=== PATIENT | male | born 1960 | race Hispanic/Latino ===

== ENCOUNTER 2019-01-12 05:24 | Day surgery (SDC) | payer MEDICAID ==
[~2019-01-12] VITALS: Ht 162.6 cm; Wt 67.1 kg
[~2019-01-12 05:24] MED LIST: ALPR0.5T PO; CETI10TA57 PO; ESOM40CA PO; FLUT16H NASAL; LACT10SO32 PO; LEVO50TA11 PO; PRAV20TA4 PO; PROP20TA7 PO; SPIR50TA PO
[2019-01-12] MEDS ORDERED: SODIUM CHLORIDE 0.9% 1000ML 1,000 ML IV ONE (05:45)
[2019-01-12 06:40] VITALS: BP 117/74
[2019-01-12] MEDS ORDERED: PROPOFOL 10 MG/ML 20ML VIAL IV ONE (08:08)
[2019-01-12 08:20] VITALS: BP 87/57
[2019-01-12 08:25] VITALS: BP 89/52
[2019-01-12 08:30] VITALS: BP 113/66
[2019-01-12 09:45] VITALS: BP 90/37
[2019-01-12 09:48] VITALS: BP 97/35
== END 2019-01-12 10:22 | disposition home or self-care (01) ==
LOC: ENDO 05:24 → DAH 05:24 → ENDO 10:22
PROVIDERS: ATTEND Internal Medicine
DX: K29.50 Unspecified chronic gastritis without bleeding (principal); I85.00 Esophageal varices without bleeding; K31.89 Other diseases of stomach and duodenum; K21.9 Gastro-esophageal reflux disease without esophagitis; K74.69 Other cirrhosis of liver; E03.9 Hypothyroidism, unspecified; B19.20 Unspecified viral hepatitis C without hepatic coma; Z79.899 Other long term (current) drug therapy; Z87.891 Personal history of nicotine dependence; Z85.21 Personal history of malignant neoplasm of larynx; Z96.643 Presence of artificial hip joint, bilateral; Z98.890 Other specified postprocedural states; Z82.49 Family history of ischemic heart disease and other diseases of the circulatory system; Z83.3 Family history of diabetes mellitus; Z82.3 Family history of stroke
CPT/HCPCS: 43239; 88305; A4606; J2704; J7030

== ENCOUNTER 2019-04-24 06:02 | Day surgery (SDC) | payer MEDICAID ==
[~2019-04-24] VITALS: Ht 162.6 cm; Wt 65.3 kg
[2019-04-24] MEDS ORDERED: SODIUM CHLORIDE 0.9% 1000ML 1,000 ML IV ONE (06:25)
[2019-04-24 07:48] VITALS: BP 115/67
[2019-04-24 08:27] VITALS: BP 117/78
[2019-04-24] MEDS ORDERED: PROPOFOL 10 MG/ML 20ML VIAL IV ONE (09:06)
[2019-04-24 09:18] VITALS: BP 98/60
[2019-04-24 09:20] VITALS: BP 90/57
[2019-04-24 09:26] VITALS: BP 99/62
--- NOTE | 2019-04-24 09:30 | NUR ---
Update Viet, patient's ride called to inform him the patient was ready for merchandise pickup/receiving associate. Viet stated he has 2 patients in front of Mr. Bennett and will be in after 1000.
[2019-04-24 09:33] VITALS: BP 112/64
--- NOTE | 2019-04-24 10:20 | NUR ---
UPDATE [place] CALLED AGAIN AND STATED HE WILL BE 40 MINUTES LONGER TO RN HEMODIALYSIS THE PATIENT.
== END 2019-04-24 11:15 | disposition home or self-care (01) ==
LOC: ENDO 06:02 → DAH 06:02 → ENDO 11:15
PROVIDERS: ATTEND Internal Medicine
DX: K59.00 Constipation, unspecified (principal); I85.00 Esophageal varices without bleeding; K29.50 Unspecified chronic gastritis without bleeding; K74.60 Unspecified cirrhosis of liver; R18.8 Other ascites; C32.9 Malignant neoplasm of larynx, unspecified; E03.9 Hypothyroidism, unspecified; K21.9 Gastro-esophageal reflux disease without esophagitis; Z86.010 Personal history of colon polyps; Z86.19 Personal history of other infectious and parasitic diseases; Z79.899 Other long term (current) drug therapy; Z96.643 Presence of artificial hip joint, bilateral; Z98.890 Other specified postprocedural states
CPT/HCPCS: 45378; A4215; A4221; A4222; A4223; A4606; A4615; A4663; J2704; J7030; G0121

== ENCOUNTER 2024-02-10 05:58 | Day surgery (SDC) | payer MEDICAID ==
[~2024-02-10] VITALS: Ht 162.6 cm; Wt 71.2 kg
[2024-02-10] VITALS (13 sets, daily range): BP systolic 91–144; BP diastolic 53–77; PULSE 55–64; RESP 15–19; TEMP 96.8–97.9
[~2024-02-10 05:58] MED LIST changes: -ALPR0.5T PO; +ESCI-8 PO; -ESOM40CA PO; -LACT10SO32 PO; +LACT10SO85 PO; +OMEP20CA12 PO
[2024-02-10] MEDS: 0.9%NACL 1000ML 1,000 ML IV ONE (07:27)
[2024-02-10] MEDS ORDERED: proPOFol 10 MG/ML 20ML VIAL IV ONE (08:06)
== END 2024-02-10 09:50 | disposition home or self-care (01) ==
LOC: DAH 05:58
PROVIDERS: ATTEND Internal Medicine Gastroenterology
DX: R13.10 Dysphagia, unspecified (principal); I86.4 Gastric varices; K76.6 Portal hypertension; K31.89 Other diseases of stomach and duodenum; K74.60 Unspecified cirrhosis of liver; I85.10 Secondary esophageal varices without bleeding; K21.9 Gastro-esophageal reflux disease without esophagitis; E03.9 Hypothyroidism, unspecified; K55.20 Angiodysplasia of colon without hemorrhage; D12.6 Benign neoplasm of colon, unspecified; G93.49 Other encephalopathy; N20.0 Calculus of kidney; Z85.828 Personal history of other malignant neoplasm of skin; Z85.21 Personal history of malignant neoplasm of larynx; Z96.643 Presence of artificial hip joint, bilateral; Z86.0100 Personal history of colon polyps, unspecified; Z79.899 Other long term (current) drug therapy
CPT/HCPCS: 43235; J7030 ×2; J3490; A4620; A4215 ×2; A4223; A4657; A4222; A4221; A4663; A4606; J2704